=== PATIENT | female | born 1985 | race Two or more races ===

== ENCOUNTER 2025-02-15 07:16 | Day surgery (SDC) | payer BC, SELFPAY ==
[2025-02-15 07:30] VITALS: BMI 23.3
[2025-02-15] MEDS: LACTATED RINGERS 1000 ML 1,000 ML 100 ML IV (07:40)
[2025-02-15] MEDS: SODIUM CHLORIDE 0.9 % (FLUSH) 10 ML SYRINGE IVF (07:40)
[2025-02-15 07:59] VITALS: BP 114/63; PULSE 67; RESP 16; TEMP 37.1; O2SAT 100
[2025-02-15 08:12] LABS: Ur HCG Qualitative* Negative (Negative)
--- NOTE | 2025-02-15 08:36 | W.PM.H&PU ---
History & Physical Update History & Physical Update H&P Reviewed and patient assessed: No changes noted
[2025-02-15 09:37] VITALS: BP 93/64; PULSE 50; RESP 16; TEMP 36.2; O2SAT 100
--- NOTE | 2025-02-15 09:42 | P.ANES_ITS ---
Anesthesia Charges Start Date/Time Anesthesia Start Date: 02/15/25 Anesthesia Start Time: 08:45 Stop Date/Time Anesthesia Stop Date: 02/15/25 Anesthesia Stop Time: 09:41 Coding CPT Codes CPT Codes: ANESTH HYSTEROSCOPE/GRAPH - 37610 ([id number]) P2 - PATIENT W/MILD SYST DISEASE, QK - CARD WRITER HAND 2-4 CNCRNT ANES PROC, QX - PRECISION AGRONOMIST SVC W/ MD MED DIRECTION
--- NOTE | 2025-02-15 09:42 | W.ANESCHARGE ---
Anesthesia Charges Start Date/Time Anesthesia Start Date: 02/15/25 Anesthesia Start Time: 08:45 Stop Date/Time Anesthesia Stop Date: 02/15/25 Anesthesia Stop Time: 09:41 Coding CPT Codes CPT Codes: ANESTH HYSTEROSCOPE/GRAPH - 05393 ([id number]) P2 - PATIENT W/MILD SYST DISEASE, QK - DERMATOLOGY TEACHER 2-4 CNCRNT ANES PROC, QX - LIFTER SVC W/ MD MED DIRECTION
[2025-02-15 09:45] VITALS: BP 116/74; PULSE 57; RESP 16; O2SAT 100
--- NOTE | 2025-02-15 09:46 | W.PM.GYNPROC ---
Procedure Note Date of procedure: 02/15/25 Will [facility] bill your pro fee for this procedure?: Yes Pre-op diagnosis: Abnormal uterine bleeding Thickened endometrium on ultrasound Post-op diagnosis: same Procedure: Hysteroscopy, visual dilation and curettage Anesthesia: MAC Complications: none Surgeon: Shannan Coulter MD Estimated blood loss (mL): 0 IV fluids (mL): 700 Urine Output (mL): 150 Pathology: specimen obtained, sent to pathology ( endometrial curettings) Condition: stable Disposition: same day Findings: 1. Upon pelvic exam under anesthesia, the cervix and vagina were normal in appearance. Uterus was mobile and anteverted, of normal size and texture. There were no palpable adnexal masses. 2. Upon hysteroscopy, survey of the endocervix was normal. Survey of the endometrial cavity revealed a diffusely thickened endometrium without discrete visible polyps. The cavity shape and tubal ostia were normal in appearance bilaterally. Saline deficit: 440 mL Procedure Description: Procedure in detail: Patient was taken to the operating room with IV running. She was positioned in dorsal lithotomy position with her legs fully supported in Yellofin stirrups. Monitored anesthesia care was administered. She was prepped and draped in the usual sterile fashion. Exam under anesthesia was performed for the above-noted findings. Speculum was inserted. Cervix visualized and grasped along the anterior lip with an Allis clamp. Cervix was serially dilated to accommodate the TRUCLEAR hysteroscope. This was assembled with saline inflow and outflow in place. The line was flushed of bubbles. The hysteroscope was advanced through the cervix into the endometrial cavity for the above noted findings. The tissue morcellator was then inserted through the operating channel. Window lock was performed. Under direct visualization, the endometrial cavity was circumferentially curetted with the tissue morcellator. The hysteroscope and morcellator were then removed from the uterus. Allis clamp was removed from the anterior lip of cervix. Hemostasis was noted. Patient tolerated procedure well. She was taken to recovery area in stable condition.
[2025-02-15 10:00] VITALS: BP 116/74; PULSE 46; RESP 16; O2SAT 100
--- NOTE | 2025-02-15 10:11 | P.ANES_ITS ---
Anesthesia Charges Start Date/Time Anesthesia Start Date: 02/15/25 Anesthesia Start Time: 08:45 Stop Date/Time Anesthesia Stop Date: 02/15/25 Anesthesia Stop Time: 09:41 Coding CPT Codes CPT Codes: ANESTH HYSTEROSCOPE/GRAPH - 29557 ([id number]) QK - CUSTODIAL SERVICES MANAGER 2-4 CNCRNT ANES PROC, QX - DEDICATED REGIONAL DRIVER SVC W/ MD MED DIRECTION, P2 - PATIENT W/MILD SYST DISEASE
--- NOTE | 2025-02-15 10:11 | W.ANESCHARGE ---
Anesthesia Charges Start Date/Time Anesthesia Start Date: 02/15/25 Anesthesia Start Time: 08:45 Stop Date/Time Anesthesia Stop Date: 02/15/25 Anesthesia Stop Time: 09:41 Coding CPT Codes CPT Codes: ANESTH HYSTEROSCOPE/GRAPH - 94033 ([id number]) QK - MACERATOR OPERATOR 2-4 CNCRNT ANES PROC, QX - SENIOR RADIATION THERAPIST SVC W/ MD MED DIRECTION, P2 - PATIENT W/MILD SYST DISEASE
[2025-02-15 10:15] VITALS: BP 111/60; PULSE 52; RESP 16; O2SAT 100
[2025-02-15] MEDS: ACETAMINOPHEN 500 MG TABLET 1000 MG PO (10:20)
[2025-02-15 10:30] VITALS: BP 98/64; PULSE 62; RESP 16; O2SAT 100
== END 2025-02-15 11:10 | disposition home or self-care (01) ==
LOC: OR 07:17
PROVIDERS: PCP Family Medicine; Visit Provider Obstetrics & Gynecology
PROC: 0UDB8ZZ Extraction of Endometrium, Via Natural or Artificial Opening Endoscopic (ICD-10-PCS; CPT 58558; principal; 2025-02-15 08:45)
DX: N93.8 Other specified abnormal uterine and vaginal bleeding (principal); R93.89 Abnormal findings on diagnostic imaging of other specified body structures
CPT/HCPCS: 58558; 00952; 36415; 81025; 86850; 86900; 86901; A9270; C1782; J1885; J2250; J2405; J2704; J3010; J7120